=== PATIENT | female | born 1945 | race Caucasian/White ===

== ENCOUNTER 2016-12-17 05:35 | Emergency (ER) | payer MEDICARE, OTHER ==
[~2016-12-17] VITALS: Ht 162.6 cm; Wt 97.0 kg
[~2016-12-17 05:35] MED LIST: ACET650S24 PO; CHOL5000 PO; FUR20 PO; LORA0.5T PO; MULT-1018 PO; NPR500T PO; OMEP20TA24 PO; ONDA4TAB12 PO; OXYC5SOL11 PO; POTA99TA7 PO; VIT1TABL83 PO; ZOLP10TA5 PO
[2016-12-17 05:37] VITALS: BP 114/72; PULSE 84; RESP 18; O2SAT 96
[2016-12-17] MEDS ORDERED: 0.9% Sodium Chloride 1,000 ML IV ONE (05:42)
[2016-12-17] MEDS ORDERED: Pantoprazole 4 mg/mL 10 mL Inj IVPUSH ONE (05:45)
[2016-12-17] MEDS ORDERED: Ondansetron 2 mg/mL 2 mL Inj IVPUSH ONE (05:45)
--- NOTE | 2016-12-17 06:36 | ED.REPORT ---
HPI-Abd Pain F 40 and Over Date of Service December 17, 2016 ED Provider: Ebenezer Montilla MD The patient is a 70 year old female w/ a hx of left leg DVT who presents to the ED due to severe, diffuse, abdominal pain onset a few days ago. At 1400 yesterday, she had a very painful bowel movement. She now reports diarrhea, hematochezia, left lower back pain, left hip pain, and diffuse abdominal pain. She rates her pain at 8/10. The pt is able to ambulate but has hip pain with walking. She denies nausea, vomiting, and fever. There was no injury or trauma that led to her symptoms. Nursing Notes Stated Complaint: BLOODY STOOL Chief Complaint: Female Abdominal Pain Nursing Notes Reviewed: Yes Allergies: Coded Allergies: codeine (Verified Allergy, Severe, SLEEPY, DROWSY, 03/02/16) Scheduled Cholecalciferol (Vitamin D3) (Vitamin D3) 5,000 Unit Capsule 5,000 UNIT PO DAILY Ciprofloxacin (Ciprofloxacin) 500 Mg Tablet 500 MG PO BID Furosemide (Furosemide) 20 Mg Tab 5 MG PO DIRECTED Metronidazole (Flagyl) 500 Mg Tablet 500 MG PO Q8H Multivitamin (Multi Vitamin Daily) 1 Each Tablet 1 EACH PO DAILY Vit B Comp/C/FA/Iron/Vit E (Vitamin B Complex Tablet) 1 Each Tablet 1 EACH PO DAILY Scheduled PRN Hydrocodone-Acetaminophen 5-325 mg (Hydrocodone-Acetaminophen 5-325 mg) 1 Each Tablet 1 TABLET PO Q4H PRN PRN For Pain Lorazepam (Lorazepam) 0.5 Mg Tablet 0.5 MG PO TID PRN PRN For Anxiety Naproxen (Naproxen) 500 Mg Tab 500 MG PO BID PRN PRN For Pain Zolpidem (Zolpidem) 10 Mg Tablet 10 MG PO HS PRN PRN For Insomnia General Time Seen by MD: 05:42 Chief Complaint Abdominal pain Hx Obtained From: Patient Arrived By: Walk-in Sudden in Onset?: Yes Onset Occurred: 3 days ago Symptom Duration: Since onset Location: : Diffuse Quality: Painful Radiation: : Does not radiate Severity: Current: Pain level 8 out of 10 Associated with: Reports: Diarrhea Recent Healthcare: No recent doctor visit, No recent hospitalization Similar Sx Previous: No Past Medical History Past Medical History left leg DVT Past Surgical History tubal Reports: Cataract surgery, Cholecystectomy, Hysterectomy Smoking History Former Smoker Social History Other Social History: Good social support, Local resident Ambulatory Status Independent Review of Systems Constitutional: Denies: Fever GI: Reports: Abdominal pain, Diarrhea, Hematochezia, Denies: Nausea, Vomiting Musculoskeletal: Reports: Back pain, Joint pain (left hip) Complete sys rev & neg: except as marked. Physical Exam Physical Exam Notes: Vital Signs Vital Signs (First) Date Time Temp Pulse Resp B/P Pulse Ox O2 Delivery O2 Flow Rate FiO2 12/17/16 05:37 37.1 84 18 114/72 96 Room Air Initial VS: Reviewed Head / Eyes: Atraumatic, Normocephalic, PERRL ENT: Mucous membranes moist, Conjunctiva normal Neck: Supple, Non-tender Lymphatic: No lymphadenopathy Skin: Warm, Dry General/Constitutional: Awake, Alert, Cooperative Respiratory / Chest: Atraumatic, Breath sounds NL, No respiratory distress Cardiovascular: Heart rate NL, Regular rhythm, Heart sounds NL Abdomen: No rebound Tenderness/Guarding/Rebound: Positive: Tender diffuse minimal guarding Flank / Spine / Paraspinal: Positive: Flank tender L tender in left lower back Rectum / Perineum: No gross blood Rectal for Blood: Positive: Blood - occult heme + Lower Extremity / Pelvis / MS: Inspection NL, Full range of motion, No edema left hip FROM no leg tenderness Interpretation & Diagnostics Lab Results Interpretation Result Diagram: 12/17/16 0600 12/17/16 0600 Test 12/17/16 06:00 12/17/16 06:59 White Blood Count 14.7th/mm3 (3.8-10.1) Red Blood Count 4.78mil/mm3 (3.90-5.20) Hemoglobin 14.1g/dL (12.0-15.6) Hematocrit 41.4% (35.0-46.0) Mean Corpuscular Volume 86.6fL (81-100) Mean Corpuscular Hemoglobin 29.5pg (27.0-35.0) Mean Corpuscular Hemoglobin Concent 34.1% (32.0-37.0) Red Cell Distribution Width 13.3% (12.3-15.4) Platelet Count 273bil/L (150-400) Neutrophils (%) (Auto) 86.2% (40-74) Lymphocytes (%) (Auto) 6.5% (14-46) Monocytes (%) (Auto) 6.9% (4-12) Eosinophils (%) (Auto) 0.2% (0-5) Basophils (%) (Auto) 0% (0-3) Prothrombin Time 10.5sec (8.1-12.5) Prothromb Time International Ratio 0.98ratio Sodium Level 137mEq/L (134-144) Potassium Level 3.6mEq/L (3.5-5.2) Chloride Level 101mEq/L (97-108) Carbon Dioxide Level 21mmol/L (18-29) Blood Urea Nitrogen 26mg/dL (8-27) Creatinine 1.15mg/dL (0.57-1.00) Estimat Glomerular Filtration Rate 67mL/min (>59) Glucose Level 133mg/dL (60-99) Lactic Acid Level 1.6mmol/L (0.4-2.0) Calcium Level 9.0mg/dL (8.5-10.1) Magnesium Level 2.0mg/dL (1.6-2.6) Total Bilirubin 0.8mg/dL (0.0-1.2) Aspartate Amino Transf (AST/SGOT) 16U/L (0-50) Alanine Aminotransferase (ALT/SGPT) 15U/L (0-32) Alkaline Phosphatase 69U/L (25-165) Total Protein 6.1g/dL (6.4-8.4) Albumin 3.2g/dL (3.4-5.0) Lipase 15U/L (13-60) Urine Color Yellow (YELLOW) Urine Appearance Hazy (CLEAR,HAZY) Urine pH 6.5 (5.0-8.0) Urine Specific [place] 1.015 (1.003-1.035) Urine Protein Tracemg/dL (NEG,TRACE) Urine Glucose (UA) Negativemg/dL (NEGATIVE) Urine Ketones Negativemg/dL (NEGATIVE) Urine Occult Blood Moderate (NEGATIVE) Urine Nitrite Negative (NEGATIVE) Urine Bilirubin Small (NEGATIVE) Urine Ictotest Negative (Negative) Urine Urobilinogen Normalmg/dL (NORMAL) Urine Leukocyte Esterase Small (NEGATIVE) Urine RBC 0-2/hpf (0-2) Urine WBC 0-5/hpf (0-5) Urine Epithelial Cells Many/hpf (NONE-MOD) Urine Crystals None seen (NONE SEEN) Urine Bacteria Few/hpf (NONE-FEW) Urine Hyaline Casts None/lpf (NONE) Urine Granular Casts None seen (NONE SEEN) Urine Waxy Casts None seen (NONE SEEN) Urine Red Blood Cell Casts None seen (NONE SEEN) Urine White Blood Cell Casts None seen (NONE SEEN) Urine Mucus None seen (None Seen) Urine Trichomonas None seen (NONE SEEN) Urine Yeast None (NONE SEEN) Urinalysis Comment None Urine Culture Reflexed Indicated CT Abd / Pelvis Interpretation IMPRESSION: findings of a moderately severe colitis affecting the transverse and descending colon. Npo pneumatosis, mesenteric venous gas or portal venous gas. Diverticulosis coli, without evidence for acute diverticulitis. Left ovarian cyst or cysts. Followup may be of benefit to document resolution. Radiologist: Brandon Ramey M.D. Study type: Abdominal CT no contrast Interpretation / Wet Read by: Interpret - Radiologist Re-Eval/Medical Decision Med Decision/Clinical Course 70-year-old female presenting with abdominal pain and diarrhea times several days. Reports mild blood today. Her vital signs are stable. White blood cell count is 14,000. Lactate is 1.6. CT shows moderate colitis no pneumatosis or free air. No gross blood on exam. Patient's pain resolved. Her repeat his abdominal exam with no tenderness or peritoneal signs. No history of similar in the past. Likely infectious given history. Stool ordered but patient wanted to go home before provided sample. Will treat with cipro/flagyl with return precautions. Patient felt better and requested to go home. Given resolution of pain, normal lactate will d/c home with return precautions. Is to return immediately if any new or worsening abdominal pain, fevers, nausea vomiting, bloody stools, any other new or worsening symptoms. Re-Evaluation/Progress : Time of Eval: 08:03 Patient Status: Condition improved, Pain improved Re-Evaluation/Progress Note: Pt rechecked. Pain is improved to 2/10 and she is able to sit up for the first time today. Abdominal exam recheck is soft and nontender. Heme test is guaic positive, no gross blood. Informed of diagnosis of colitis and plan for discharge. Pt requests to go home. Will call pt with results of stool test. F/U and RTER warnings given. Pt understands and agrees with plan. All questions addressed. Counseled Regarding: Diagnosis, Lab results, Need for follow-up, When/why to return to ED Discharge & Departure Primary Impression: Colitis Disposition: Home Discharge Condition All VS Reviewed: Yes Condition: Stable Additional Instructions: Thank you for entrusting us with your care today. We will call you with the results of the stool sample. Your symptoms are due to a virus or bacteria. I am sending you home with a course of antibiotics, 2 antibiotics for 2 weeks, and pain medication. Take as directed. Follow up with your primary care physician as needed. Return to the Emergency Department for any new or worsening symptoms including increased pain, fever, trouble breathing, blood in stool, dizziness, and lightheadedness. I hope you feel better soon! Referrals: [facility] Scribe Attestation Portion of this note were transcribed by Bonnie Kruse. I, Dr. Montilla, personally performed the history, physical exam, and medical decision-making: I reviewed and confirmed the accuracy for the information in the transcribed note. Signed by: nikko Carmona, 12/17/16 0800 copies to: [facility] Ebenezer Montilla MD December 17, 2016 06:36 Bonnie Kruse December 17, 2016 06:43
[2016-12-17 06:45] LABS: Mean Corpuscular Volume 86.6 fL (81-100)
[2016-12-17] MEDS ORDERED: Ondansetron 2 mg/mL 2 mL Inj IVPUSH PRN (06:45)
[2016-12-17 06:46] LABS: BASOPHILS % (AUTO) 0 % (0-3); EOSINOPHILS % (AUTO) 0.2 % (0-5); MONOCYTES % (AUTO) 6.9 % (4-12); Mean Corpuscular Hemoglobin 29.5 pg (27.0-35.0); NEUTROPHILS % (AUTO) 86.2 % (40-74); Platelet Count 273 bil/L (150-400)
[2016-12-17 07:02] LABS: INR 0.98 ratio
[2016-12-17 07:18] LABS: APPEARANCE,URINE HAZY (CLEAR,HAZY); COLOR,URINE YELLOW (YELLOW); OCCULT BLOOD,URINE MODERATE (NEGATIVE); PH,URINE 6.5 (5.0-8.0); UROBILINOGEN,URINE NORMAL (NORMAL)
[2016-12-17 07:24] LABS: ICTOTEST,URINE NEGATIVE (Negative)
[2016-12-17 07:58] VITALS: BP 149/77; PULSE 70; RESP 20; O2SAT 97
[2016-12-17 08:01] VITALS: BP 106/68
[2016-12-17 08:02] VITALS: BP 121/75
[2016-12-17] MEDS ORDERED: CIPR-198 PO (08:13)
[2016-12-17] MEDS ORDERED: METR500T PO (08:13)
[2016-12-17] MEDS ORDERED: HYDR-4003 PO (08:14)
--- NOTE | 2016-12-17 08:36 | DRSVH ---
PROCEDURE: CT ABDOMEN AND PELVIS WITH CONTRAST ([id number]) INDICATIONS: abd pain TECHNIQUE: After the administration of intravenous contrast, 5 mm thick sections acquired from the diaphragm to the symphysis. 5 mm coronal and sagittal reformats were acquired. For radiation dose reduction, the following was used: automated exposure control, adjustment of mA and/or kV according to patient siz e. COMPARISON: None. FINDINGS: Image quality: Excellent. ABDOMEN: Lung bases: Lung bases are clear. Heart size is normal. Solid organs: Liver and spleen are normal in size and enhancement. Small cysts are noted in the live r. Gallbladder is surgically absent. Biliary system is non dilated. Pancreas enhances normally. No adrenal nodules. Kidneys demonstrate normal size and enhancement, without hydronephrosis. Peritoneum and bowel: Scattered diverticuli noted in the sigmoid and left colon. There is circumferen tial wall thickening involving the transverse colon, the splenic colonic flexure and the proximal lef t colon. No pneumatosis identified. The appendix is normal. No free fluid or air. Nodes and vessels: No retroperitoneal or mesenteric adenopathy by size criteria. Aorta and inferior vena cava are normal in size. Scattered atherosclerotic calcifications involving the abdominal and p elvic vasculature. Miscellaneous: No ventral hernias. PELVIS: Genitourinary: Bladder wall thickness is normal. There is a 3.4 x 4.0 x 6.2 cm multiloculated/septat ed left adnexal region cyst. Cystic neoplasm cannot be excluded. Recommend pelvic ultrasound for furt her evaluation. Uterus is absent. Miscellaneous: No inguinal hernias or adenopathy. Venous varices noted in the subcutaneous fat of th e midline of the anterior, lower pelvis. Bones: No suspicious bony lesions. No vertebral body compression fractures. Spine degenerative disc disease and facet arthropathy. IMPRESSION: 1. Circumferential wall thickening involving the transverse and proximal left colon compatible with n onspecific colitis. 2. Colonic diverticulosis without evidence of diverticulitis. 3. Large multiloculated left adnexal region cyst. Cystic neoplasm cannot be excluded. Recommend pelvi c ultrasound for definitive characterization. Dictated by: Perlita Urban MD, PhD on 12/17/2016 at 8:28 Approved by: Perlita Urban MD, PhD on 12/17/2016 at 8:34
== END 2016-12-17 08:27 | disposition home or self-care (01) ==
LOC: SED 05:40
DX: K52.9 Noninfective gastroenteritis and colitis, unspecified (principal); Z86.718 Personal history of other venous thrombosis and embolism; Z90.49 Acquired absence of other specified parts of digestive tract; Z87.891 Personal history of nicotine dependence; Z88.5 Allergy status to narcotic agent
CPT/HCPCS: 36415; 74177; 80053; 81000; 83605; 83690; 83735; 85025; 85610; 86850; 87086; 87088; 96361; 96374; 96375; 99285; J2270; J2405; J7030; Q9967

== ENCOUNTER 2016-12-18 14:08 | Emergency (ER) | payer MEDICARE, OTHER ==
[~2016-12-18 14:08] MED LIST changes: -ACET650S24 PO; +CIPR-198 PO; +HYDR-4003 PO; +METR500T PO; -OMEP20TA24 PO; -ONDA4TAB12 PO; -OXYC5SOL11 PO; -POTA99TA7 PO
[2016-12-18 14:14] VITALS: BP 136/59; PULSE 70; RESP 16; O2SAT 99
--- NOTE | 2016-12-18 14:25 | ED.REPORT ---
HPI-General Illness Date of Service December 18, 2016 ED Provider: Ebenezer Montilla MD The patient is as 70 year old female w/ a hx of left leg DVT who presents to the ED due to vomiting just [employer]. The patient was coming to [facility] for a doctor's appointment for a barium swallow test. She was in the parking lot with her daughters in the car when she suddenly vomited. She became extremely weak and could not even sit up to vomit, and c/o associated trouble breathing and lightheadedness. Pt reports that she had a panic attack. She denies hematemesis , hematochezia, and LOC. Pt denies any symptoms at the ED. Nursing Notes Stated Complaint: PANIC ATTACK Chief Complaint: Female Abdominal Pain Nursing Notes Reviewed: Yes Allergies: Coded Allergies: codeine (Verified Allergy, Severe, SLEEPY, DROWSY, 03/02/16) Scheduled Cholecalciferol (Vitamin D3) (Vitamin D3) 5,000 Unit Capsule 5,000 UNIT PO DAILY Ciprofloxacin (Ciprofloxacin) 500 Mg Tablet 500 MG PO BID Furosemide (Furosemide) 20 Mg Tab 5 MG PO DIRECTED Metronidazole (Flagyl) 500 Mg Tablet 500 MG PO Q8H Multivitamin (Multi Vitamin Daily) 1 Each Tablet 1 EACH PO DAILY Vit B Comp/C/FA/Iron/Vit E (Vitamin B Complex Tablet) 1 Each Tablet 1 EACH PO DAILY Scheduled PRN Hydrocodone-Acetaminophen 5-325 mg (Hydrocodone-Acetaminophen 5-325 mg) 1 Each Tablet 1 TABLET PO Q4H PRN PRN For Pain Lorazepam (Lorazepam) 0.5 Mg Tablet 0.5 MG PO TID PRN PRN For Anxiety Naproxen (Naproxen) 500 Mg Tab 500 MG PO BID PRN PRN For Pain Zolpidem (Zolpidem) 10 Mg Tablet 10 MG PO HS PRN PRN For Insomnia General Time Seen by MD: 14:20 Chief Complaint Vomiting Hx Obtained From: Patient Arrived By: Walk-in Sudden in Onset?: Yes Onset Occurred: Just prior to arrival Symptom Duration: Since onset Severity: Current: No pain currently Recent Healthcare: Recent doctor visit Similar Sx Previous: Yes Past Medical History Past Medical History left leg DVT Past Surgical History tubal Reports: Cataract surgery, Cholecystectomy, Hysterectomy Smoking History Former Smoker Social History Other Social History: Good social support, Local resident Ambulatory Status Independent Review of Systems Full Review of Systems Respiratory: Reports: Shortness of breath GI: Reports: Nausea, Vomiting, Denies: Hematemesis, Hematochezia Neurologic: Reports: Dizziness, Lightheaded, Denies: Change LOC Psychiatric: Reports: Anxiety Complete sys rev & neg: except as marked. Physical Exam Vital Signs Vital Signs Date Time Temp Pulse Resp B/P Pulse Ox O2 Delivery O2 Flow Rate FiO2 12/18/16 14:14 36.5 70 16 136/59 99 Room Air Initial VS: Reviewed Head / Eyes: Atraumatic, Normocephalic ENT: Mucous membranes moist, Conjunctiva normal Neck: Supple, Non-tender, Full range of motion Respiratory: Breath sounds normal, Clear to auscultation, No respiratory distress Cardiovascular: Regular rate & rhythm, Heart sounds normal, Intact distal pulses Abdomen / GI: Soft, Non-tender, No guarding, No rebound, No distention Back: No CVA tenderness Extremities: Vascular intact, Neuro intact, No swelling, No tenderness Skin: Warm, Dry Neurologic: Alert, Oriented Interpretation & Diagnostics Lab Results Interpretation Test 12/18/16 14:45 Hold Purple Top Tube Received (Received) Hold Blue Top Tube Received (Received) Hold [place] Top Tube Received (Received) Re-Eval/Medical Decision Med Decision/Clinical Course 70-year-old femal with recent GI illness presenting with one episode of vomiting and panic attack immediately prior to arrival. She feels much better at this time. She denies any nausea vomiting or abdominal pain. She had a recent GI illness with nausea vomiting diarrhea that resolved today. She reports having a panic attack in the parking lot today when she was coming to our hospital to have a barium swallow that was ordered by her primary doctor several weeks ago. She is requesting to leave the ER and go to her appointment. She feels much better from an anxiety standpoint and her nausea vomiting is resolved. She denies any symptoms at this time. Her nausea may be due to the residual GI infection. Her abdominal exam is benign. She does have a history of panic attacks. Given resolution of symptoms and patient's request, she will be discharged home with plans to return immediately should she have any new or worsening symptoms. Counseled Regarding: Diagnosis, Lab results, Need for follow-up, When/why to return to ED Discharge & Departure Primary Impression: Panic attack Additional Impression: Vomiting Vomiting type: unspecified Vomiting Intractability: unspecified Nausea presence: unspecified Qualified Code: R11.10 - Vomiting, unspecified Disposition: Home Discharge Condition All VS Reviewed: Yes Condition: Stable Additional Instructions: Follow up with your primary care physician this week. Return to the Emergency Department for any new or worsening symptoms including weakness, dizziness, another episode of vomiting, chest pain, shortness of breath, nausea, abdominal pain, anxiety or syncopal events. Enjoy the sunshine today! Referrals: Erika Lala MD (PCP) Scribe Attestation Portion of this note were transcribed by Bonnie Kruse. I, Dr. Montilla, personally performed the history, physical exam, and medical decision-making: I reviewed and confirmed the accuracy for the information in the transcribed note. Signed by: nikko Carmona, 12/18/16 1600 copies to: Erika Lala MD, Ben M MD December 18, 2016 14:25 Bonnie Kruse December 18, 2016 14:34
== END 2016-12-18 14:44 | disposition home or self-care (01) ==
LOC: SED 14:08
DX: F41.0 Panic disorder [episodic paroxysmal anxiety] (principal); R11.2 Nausea with vomiting, unspecified; Z86.718 Personal history of other venous thrombosis and embolism; Z87.891 Personal history of nicotine dependence; Z87.19 Personal history of other diseases of the digestive system; Z88.5 Allergy status to narcotic agent

== ENCOUNTER 2017-01-25 13:51 | Day surgery (SDC) | payer MEDICARE, OTHER ==
[~2017-01-25] VITALS: Ht 160 cm; Wt 93.0 kg
[~2017-01-25 13:51] MED LIST changes: +DXM4T PO; +Lactated Ringer's 1,000 ML IV ONE; +Lactated Ringer's 1,000 ML IV SCH
[2017-01-25] MEDS ORDERED: Propofol 10,000 mCg/mL 20 mL Inj ONE (13:52)
[2017-01-25] MEDS ORDERED: Lidocaine PF 1% 30 mL Inj ONE (13:52)
[2017-01-25 14:18] VITALS: BP 128/86; PULSE 82; RESP 16; O2SAT 96
[2017-01-25] MEDS ORDERED: Lactated Ringer's 1,000 ML IV SCH (14:39)
[2017-01-25] MEDS ORDERED: Ondansetron 2 mg/mL 2 mL Inj IVPUSH PRN (14:40)
[2017-01-25] MEDS ORDERED: MetoCLOpramide 5 mg/mL 2 mL Inj IVPUSH PRN (14:40)
--- NOTE | 2017-01-25 15:32 | PCM.HPANE ---
Patient Data Date of Service: Jan 25, 2017 Surgeon Admitting Provider: Attending Provider:Rody Aleman MD Primary Care Physician:Latosha Santos DO Other Provider:Jossue Clark Anesthesia Reason for Visit Screening, Aguirre's Esophagus Ht/WT & BMI Height (Feet): 5 Height (Inches): 3 Weight (Kilograms): 93 Body Mass Index 36.00 Allergies Coded Allergies: codeine (Verified Allergy, Severe, SLEEPY, DROWSY, 01/25/17) Past Anesthesia History Anesthesia History: Positive for:: Anesthesia Reactions (anes lasts a long time , difficulty waking), Denies:: Abnormal Airway, Difficult Intubation, Fam Anesthesia Reaction, Fam Malignant Hypertherm, Malignant Hyperthermia Diabetes History Hx Diabetes?: No MRSA MRSA: No Medications Blood Thinner: Aspirin Hypertension Medication: No Home Meds Incl Beta Christian: No Reported Medications Furosemide 20 Mg Tab20 Mg PO DAILY 30 Days Ref 0 01/24/17 Zolpidem 10 Mg [id number] Mg PO HS PRN For Insomnia Ref 0 06/12/16 Vit B Comp/C/FA/Iron/Vit E (Vitamin B Complex Tablet)1 Each Tablet1 Each PO DAILY 06/12/16 Cholecalciferol (Vitamin D3) (Vitamin D3)5,000 Unit Capsule5,000 Unit PO DAILY 06/12/16 Naproxen 500 Mg [id number] Mg PO BID PRN For Pain Ref 0 06/12/16 Multivitamin (Multi Vitamin Daily)1 Each Tablet1 Each PO DAILY 30 Days Ref 0 06/12/16 Lorazepam 0.5 Mg Tablet0.5 Mg PO TID PRN For Anxiety Ref 0 06/12/16 Furosemide 20 Mg Tab5 Mg PO DIRECTED 30 Days Ref 0 06/12/16 Discontinued Reported Medications Dexamethasone 4 Mg Tablet4 Mg PO DAILY Ref 0 01/24/17 Discontinued Scripts Hydrocodone-Acetaminophen 5-325 mg 1 Each Tablet1 Tablet PO Q4H PRN For Pain #5 TABLET Prov:Ebenezer Montilla MD 12/17/16 Metronidazole (Flagyl)500 Mg [id number] Mg PO Q8H 14 Days Prov:Ebenezer Montilla MD 12/17/16 Ciprofloxacin 500 Mg [id number] Mg PO BID 14 Days Prov:Ebenezer Montilla MD 12/17/16 History History of ENT Problems?: Yes HEENT History: Positive for:: Cataracts (bilateral surgery) Dysphagia (occasional-) Denies:: Abnormal Airway Difficult Intubation Hearing Problem Sinus Problem TMJ Denture Type: None Teeth Condition: Within Normal Limits Hx of Heart Problems?: Yes Cardiovascular History: Positive for:: Edema (occasional takes furosemide) Thrombophlebitis (hx of left leg DVT remote ) Denies:: AICD Abdominal Aortic Aneurism Cardiac Surgery Congestive Heart Failure Hypertension Pacemaker Valvular Heart Disease Hx of Respiratory Problem?: No Respiratory History: Denies:: Asthma COPD Emphysema Oxygen Administration Pneumonia Tuberculosis Use of C-PAP Machine Hx Neurologic Problems?: No Neurological History: Positive for:: Headaches (occasional 1-2 x yars- 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 Skin History: Denies:: History Skin Disorders? Pressure Ulcers Hx Musculoskeletal Problems?: No Musculoskeletal History: Denies:: Back Injury Joint Replacement Musculoskeletal Trauma Systemic Lupus Hx of Psycho/Social Problems?: Yes Psycho Social History: Positive for:: Anxiety Hx Depression Hx Surgeries?: Yes (lap eloise, left saphenous vein ligation/stripping , speedy , tubal, hyst) Hx Any Other Health Problems?: Yes Other History: Denies:: Cancer Thyroid Disease History Blood Transfusions: Positive for:: Blood Transfuse Reaction Blood Transfusions Hx Diabetes: No Hx Alcohol Use: Yes (Occ.)Hx Substance Use: No Smoking Status: Former Smoker Have You Smoked inLast 12 mo: No Stop/Bang Treated for Sleep Apnea?: No Do You Have a CPAP Machine?: No S-Snoring: Do You Snore Loudly: No T-Tired: feel tired, fatigued: No O-Obsered: Observed not breath: No P-Blood Pressure: treated: No B- Body Mass Index > 35 kg/m2: No A- Age over 50: Yes N- Neck Large Circumference: No G- Gender Male: No MEGHA Total Score: 1 MEGHA Risk Assessment: Low Risk, <3 Yes Risk Assessment Category Category 1A: Patient has history of documented sleep apnea, and HAS NOT received any narcotic, sedative or anesthesia administration during this stay. Category 1B: Patient has history of documented sleep apnea, and HAS received any narcotic , sedative or anesthesia administration during this stay Category 2: Patient has SUSPECTED Obstructive Sleep Apnea, and HAS received any narcotic , sedative or anesthesia administration during this stay. Category 3: Patient has SUSPECTED Obstructive Sleep Apnea and HAS NOT received narcotic, sedative or anesthesia administration during this stay. Category 4: Outpatient in Procedural Areas with known sleep apnea or who screen positive for High Risk via the STOP/BANG questionnaire. Exam Exam Vital Signs Vital Signs Date Time Temp Pulse Resp B/P Pulse Ox O2 Delivery O2 Flow Rate FiO2 01/25/17 14:18 36.8 82 16 128/86 96 Room Air General Appearance: Alert, Oriented X3, Cooperative HEENT/AIRWAY: MP 2, Neck Movement (Full), Mouth Opening (Wide) Lungs: Clear to Auscultation, Normal Air Movement Heart: Regular Rate/Rhythm, Normal S1, Normal S2 Plan Impression Patient chart reviewed, patient interviewed and anesthestic plan with risks, benefits, and alternatives discussed, and informed consent obtained. NPO per Anesth. Guidelines: Yes ASA Physical Status: ASA2 Mod Systemic Disease Anesthetic Plan: MAC Bene/Risks/Altern/Consents: Yes HP Complete Prior to Induction: Yes Geremias Asencio MD Jan 25, 2017 14:38
[2017-01-25 16:27] VITALS: BP 133/79; PULSE 74; RESP 16; O2SAT 98
[2017-01-25 16:37] VITALS: BP 129/78; PULSE 62; RESP 16; O2SAT 99
--- NOTE | 2017-01-25 16:44 | PCM.ANEP1 ---
Post Anesthesia PACU Phase 1 Assessment Date of Service: Jan 25, 2017 Vital Signs Vital Signs Date Time Temp Pulse Resp B/P Pulse Ox O2 Delivery O2 Flow Rate FiO2 01/25/17 16:27 74 16 133/79 98 Room Air 01/25/17 14:18 36.8 82 16 128/86 96 Room Air Anesthetic Administered: MAC Level of Alertness: Awake, talking DE's with Equal Strength: Yes Pain: No Nausea or Vomiting: No CV Function & Hydration Stable: Yes Airway Device: Oxygen Delivery: Room Air Lungs: Normal Air Movement PACU Phase 2 Assessment Complications: No Follow up Care: N/A Patient Instructions Provided: N/A Geremias Asencio MD Jan 25, 2017 16:44
--- NOTE | 2017-01-25 19:13 | ENDO ---
[address] [address] ENDOSCOPY PROCEDURE PATIENT: CANDY DAHL : 1945 MR#: [id number] ADMIT: 01/25/2017 JOB ID: [id number] CORRECTED REPORT: DATE: 01/25/2017 PROCEDURE PERFORMED: Upper endoscopy, colonoscopy. 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 SURGEON: Rody Aleman MD HISTORY OF PRESENT ILLNESS: This is a 71-year-old woman who I first met one year ago when she had a recurrent hiatal hernia after previous Mayuri fundoplication and hiatal hernia repair. 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 She presented for a repeat EGD given the severity of her previous esophagitis after antireflux surgery. Additionally, her last colonoscopy was at least 15 years prior. Approximately five weeks ago she had an episode of abdominal pain and had a CT scan in the emergency department that showed transverse colitis. Her symptoms abated after a course of antibiotics. INSTRUMENT: Olympus GIF H 180 J; Olympus PCF H 190 DC. ANESTHESIA: MAC. FINDINGS: 1. Intact Toupet fundoplication. 2. Aguirre's esophagus was present with the proximal extent 27 cm, the most proximal circumferential extent 29 cm, lower esophageal sphincter at 35 cm, [place] C6 M8. 3. An ulcer was located within the esophagus at 34 cm, approximately 1 cm in width by 2 cm in length. 4. On the colonoscopy, diverticula were noted. 5. On the endoscopy, resolution of her severe esophagitis was noted. DESCRIPTION OF PROCEDURE: The patient was brought to the endoscopy suite and placed in left lateral decubitus position. A bite block was placed. The endoscope was advanced through the esophagus, stomach, and into the third portion of the duodenum. The entire visualized duodenum was normal. The stomach was normal and on retroflexed view she had a Hill grade 1 flap valve and an intact Toupet fundoplication. The endoscope was withdrawn. The lower esophageal sphincter was at 35 cm and there was an ulceration at 34 cm (the patient has a recent history of naproxen use and the appearance suggested possible ulceration from this). Biopsies were not performed as the ulcer was moderately deep. Aguirre's esophagus was present without nodularity. C6 M8 as noted above. Biopsies were not performed as she had four quadrant surveillance biopsies less than one year ago. The endoscope was withdrawn. The patient tolerated the procedure well. Attention was turned to the colonoscopy. External examination of the anus and digital rectal examination were normal. The endoscope was advanced to the cecum and into the most distal aspect of the terminal ileum, which was normal. The prep was poor, but with adequate irrigation the mucosa was seen adequately visualized. The scope was slowly withdrawn and there were no masses, strictures, or polyps. She had sigmoid diverticulosis. There was no sign of erythema or inflammation. Retroflexed examination of the rectum revealed internal hemorrhoids. The patient tolerated the procedure well. COMPLICATIONS: None. ESTIMATED BLOOD LOSS: None. SPECIMENS: None. Corrected by GS 02/01/17 at 12:17pm DOS.
== END 2017-01-25 23:59 | disposition home or self-care (01) ==
LOC: END 13:51
PROVIDERS: ATTEND Surgery
DX: Z12.11 Encounter for screening for malignant neoplasm of colon (principal); K57.30 Diverticulosis of large intestine without perforation or abscess without bleeding; K64.8 Other hemorrhoids; K22.70 Barrett's esophagus without dysplasia; I10 Essential (primary) hypertension; K21.9 Gastro-esophageal reflux disease without esophagitis; E78.5 Hyperlipidemia, unspecified; E66.01 Morbid (severe) obesity due to excess calories; F41.8 Other specified anxiety disorders; Z86.718 Personal history of other venous thrombosis and embolism; Z90.710 Acquired absence of both cervix and uterus; Z68.39 Body mass index [BMI] 39.0-39.9, adult; Z87.891 Personal history of nicotine dependence
CPT/HCPCS: 43235; G0121; J7120